=== PATIENT | male | born 1995 | race American Indian/Alaskan Native ===

== ENCOUNTER 2019-08-18 07:05 | Emergency (ER) | payer SELFPAY ==
[2019-08-18 07:18] VITALS: BP 119/70
--- NOTE | 2019-08-18 07:53 | Emergency Department Report ---
ED Male HPI - General Chief complaint: Urogenital-Male Stated complaint: CHECK UP Time Seen by Provider: 08/18/19 07:24 Source: patient Mode of arrival: Ambulatory Limitations: No Limitations - History of Present Illness Initial comments: This is a 23-year-old -[place] male who presents to the emergency room with swollen and painful right testicle for 4 months. He reports pelvic pain, low back pain, and penile discharge is associated symptoms. He admits to risk of sexually transmitted disease. He denies urinary frequency, urgency, fever, chills, and dysuria. MD Complaint: testicle pain (Right), testicle swelling (Right), penile discharge, dysuria Onset/Timin -: month(s) Location: right testicle Radiation: none Severity: moderate Severity scale (0 -10): 6 Quality: aching, burning Consistency: intermittent Improves with: none Worsens with: urination, palpation, movement, sexual intercourse new sexual partner discharge, swelling. denies: mass, urinary retention, fever - Related Data Sexually active: Yes Previous Rx's Medication Instructions Recorded Last Taken Type DOXYCYCLINE Hyclate [Vibramycin 100 mg PO Q12HR #20 capsule 08/18/19 Unknown Rx CAP] Allergies Allergy/AdvReac Type Severity Reaction Status Date / Time No Known Allergies Allergy Unverified 08/18/19 07:16 ED Review of Systems ROS: Stated complaint: CHECK UP Other details as noted in HPI Constitutional: denies: chills, fever Respiratory: denies: cough, shortness of breath, wheezing Cardiovascular: denies: chest pain, palpitations Gastrointestinal: denies: abdominal pain, nausea, diarrhea Genitourinary: dysuria, discharge, testicular pain (Right testicular pain and swelling). denies: urgency Musculoskeletal: back pain. denies: joint swelling, arthralgia Skin: denies: rash, lesions Neurological: denies: headache, weakness, paresthesias Psychiatric: denies: anxiety, depression ED Past Medical Hx - Past Medical History Previous Medical History?: No - Surgical History Past Surgical History?: No - Social History Smoking Status: Never Smoker Substance Use Type: Marijuana - Medications Home Medications: Home Medications Medication Instructions Recorded Confirmed Last Taken Type DOXYCYCLINE Hyclate [Vibramycin 100 mg PO Q12HR #20 capsule 08/18/19 Unknown Rx CAP] ED Physical Exam - General Limitations: No Limitations General appearance: alert, in no apparent distress - Respiratory Respiratory exam: Present: normal lung sounds bilaterally. Absent: respiratory distress - Cardiovascular Cardiovascular Exam: Present: regular rate, normal rhythm. Absent: systolic murmur, diastolic murmur, rubs, gallop - GI/Abdominal GI/Abdominal exam: Present: soft, tenderness (Suprapubic), normal bowel sounds. Absent: distended, guarding, rebound, rigid - exam: Present: testicular tenderness (Right), urethral discharge, scrotal swelling, circumcision. Absent: vertical testicular lie External exam: Present: normal external exam. Absent: erythema, lesions, lacerations, ecchymosis, bleeding - Extremities Exam Extremities exam: Present: normal inspection - Back Exam Back exam: Present: CVA tenderness (L). Absent: CVA tenderness (R) - Neurological Exam Neurological exam: Present: alert, oriented X3, normal gait - Psychiatric Psychiatric exam: Present: normal affect, normal mood - Skin Skin exam: Present: warm, dry, intact, normal color. Absent: rash ED Course Vital Signs 08/18/19 07:16 Temperature 97.9 F Pulse Rate 77 Respiratory 15 Rate Blood Pressure 119/70 O2 Sat by Pulse 100 Oximetry ED Medical Decision Making - Lab Data Lab Results 08/18/19 Range/Units Unknown Urine Color Yellow (Yellow) Urine Turbidity Clear (Clear) Urine pH 6.0 (5.0-7.0) Ur Specific [place] 1.019 (1.003-1.030) Urine Protein <15 mg/dl (Negative) mg/dL Urine Glucose (UA) Neg (Negative) mg/dL Urine Ketones Neg (Negative) mg/dL Urine Blood Neg (Negative) Urine Nitrite Neg (Negative) Urine Bilirubin Neg (Negative) Urine Urobilinogen < 2.0 (<2.0) mg/dL Ur Leukocyte Esterase Neg (Negative) Urine WBC (Auto) 8.0 H (0.0-6.0) /HPF Urine RBC (Auto) 1.0 (0.0-6.0) /HPF Urine Mucus Few /HPF - Radiology Data Radiology results: report reviewed US testicular doppler comp INDICATION / CLINICAL INFORMATION: swollen right testicle. COMPARISON: None available. FINDINGS: Testicular size and echogenicity is normal bilaterally. Doppler imaging shows normal blood flow to both testicles. The right epididymis is asymmetrically prominent. The head of the epididymis measures 2 cm. The left epididymis is normal. No significant hydrocele. IMPRESSION: 1. Findings consistent with right epididymitis. 2. No evidence of testicular torsion. - Medical Decision Making This is a 23-year-old male who presents to the emergency room with right testicular pain and swelling for 4 months. The right testicle is swollen and tender on exam. Work-up: Urinalysis and testicular ultrasound. Slight norm vation of WBC on urinalysis. Testicular ultrasound findings consistent with right epididymitis. No evidence of testicular torsion. Based on history, exam, and testing I do not suspect that the patient has testicular torsion, abscess, severe cellulitis, gangrene, or an emergent cause. Given azithromycin and Rocephin. Start doxycycline 100 mg p.o. twice daily for 10 days. Referral to PCP for follow-up. Patient discharged home with strict return instructions. Critical care attestation.: If time is entered above; I have spent that time in minutes in the direct care of this critically ill patient, excluding procedure time. ED Disposition Clinical Impression: Right testicular pain, Testicular swelling, right, Penile discharge, Epididymitis, right Disposition: DC- TO HOME OR SELFCARE Is pt being admited?: No Condition: Stable Instructions: Epididymitis (ED) Additional Instructions: Inform all partners of diagnosis for treatment. Continue safe sexual intercourse. Follow up with Primary Care Provider or health department. Prescriptions: DOXYCYCLINE Hyclate [Vibramycin CAP] 100 mg PO Q12HR #20 capsule Referrals: GREGORIA MILNER MD [Staff Physician] - 3-5 Days [facility] [Outside] - 3-5 Days [facility] [Outside] - 3-5 Days [facility] [Provider Group] - 3-5 Days Forms: STI Treatment and Prevention Time of Disposition: 09:06
[2019-08-18 08:46] LABS: Bilirubin,Urine NEG (Negative); Blood,Urine NEG (Negative); Color,Urine Yellow (Yellow); Mucus,Urine FEW /HPF; Protein,Urine <15 mg/dL mg/dL (Negative); Urobilinogen,Urine < 2.0 mg/dL (<2.0)
--- NOTE | 2019-08-18 08:56 | Ultrasound Report ---
US testicular doppler comp INDICATION / CLINICAL INFORMATION: swollen right testicle. COMPARISON: None available. FINDINGS: Testicular size and echogenicity is normal bilaterally. Doppler imaging shows normal blood flow to both testicles. The right epididymis is asymmetrically prominent. The head of the epididymis measures 2 cm. The left epididymis is normal. No significant hydrocele. IMPRESSION: 1. Findings consistent with right epididymitis. 2. No evidence of testicular torsion. Signer Name: Lakhwinder Bess MD Signed: 08/18/2019 8:52 AM Workstation Name: [id number]
[2019-08-18] MEDS ORDERED: AZITHROMYCIN 250 MG TAB PO ONE (09:04)
[2019-08-18] MEDS ORDERED: LIDOCAINE-MPF (1%) 10 MG/1 ML VIAL 5 ML INFILTRATI ONE (09:04)
== END 2019-08-18 09:19 | disposition home or self-care (01) ==
LOC: ED 07:05
DX: N45.1 Epididymitis (principal); F12.10 Cannabis abuse, uncomplicated
CPT/HCPCS: 81001; 93975; 96372; 99283; J0696

== ENCOUNTER 2020-03-02 11:57 | Emergency (ER) | payer SELFPAY ==
[2020-03-02 12:11] VITALS: BP 132/65
--- NOTE | 2020-03-02 12:29 | Emergency Department Report ---
Chief Complaint: Dental/Oral Stated Complaint: TOOTHACHE SEVERE PAIN Time Seen by Provider: 03/02/20 12:21 - HPI History of Present Illness: Patient is a 24-year-old male who presents emergency room with complaints of a toothache. He states that his bilateral lower back with some teeth began causing him pain in the last few days. He states that he has not seen a dentist since childhood. He denies any facial swelling, difficulty swallowing, difficulty breathing, fever, nausea, vomiting, diarrhea. Patient also states that he is here for a "checkup." I asked patient what he meant by a checkup and he states that he wants a full routine STD panel. He is not having any symptoms related to an STD. He denies any abdominal pain, pain or swelling in the testicles, dysuria, penile discharge, fever, vomiting. No past medical history. No allergies to medications. Vitals are normal On exam: Non toxic appearing, no acute distress atraumatic, normocephalic normal appearance of the eyes, PERRL, EOMI, no periorbital edema or ecchymosis moist mucus membranes, normal oropharynx, he has some bilateral impacted wisdom teeth present to the lower gumline, no edema or induration of the gumline, no erythema, no facial swelling, uvula is midline, no uvular edema or deviation, no trismus, no muffled voice regular heart rate and rhythm, no gallops, no rubs, no murmurs breath sounds are clear bilaterally, no w/r/r Abdomen is soft, nontender, no abdominal tenderness on exam, normal bowel sounds, no guarding, no rebound, no rigidity, no peritoneal signs exam: No scrotal edema, no tenderness palpation of the testicles bilaterally, no epididymal tenderness palpation or edema, normal testicular lie, normal cremasteric reflex, skip loader: Mishel REYES A&O x4, no focal neuro deficit skin is warm, dry, intact Patient is presenting for a toothache and a routine STD panel There are no signs of dental abscess, infected dental caries, gingivitis or Jung's at this time Patient has no symptoms related to STD, he has a normal exam which was chaperoned by AMY Florentino This hospital facility policy is that they do not do routine male STD screenings Patient will be given dental referrals Patient will be given clinic and health department referral Discussed strict return precautions with patient Medical screening examination performed there is no threat to life or limb this time - Exam Vital Signs: Vital Signs 03/02/20 12:11 Temperature 98.5 F Pulse Rate 72 Respiratory 16 Rate Blood Pressure 132/65 [Right] O2 Sat by Pulse 99 Oximetry MSE screening note: Focused history and physical exam performed. ED Disposition for MSE Clinical Impression: Toothache, Concern about STD in male without diagnosis Disposition: MED SCREENING EXAM-LEFT Is pt being admited?: No Does the pt Need Aspirin: No Condition: Stable Additional Instructions: May alternate Tylenol or ibuprofen as needed for discomfort. Gargle with warm salt water 3-5 times a day. May use Orajel [id number]. Follow-up with a dentist. It is very important that you follow-up with a dentist. Please follow-up with the clinic or the health department for a full STD panel. Please have any partner tested and treated as well. Avoid sexual intercourse. Return to emergency room any new or worsening symptoms. walk in clinic: [facility] Address: [address] [place] [id number] Referrals: [facility] [Outside] - 2-3 Days [facility] [Outside] - 2-3 Days [facility] [Outside] - 2-3 Days Time of Disposition: 12:27 Print Language: [id number]
== END 2020-03-02 12:58 | disposition left against medical advice (07) ==
LOC: ED 11:57
DX: K08.89 Other specified disorders of teeth and supporting structures (principal); Z53.21 Procedure and treatment not carried out due to patient leaving prior to being seen by health care provider